=== PATIENT | female | born 2000 | race African-American/Black ===

== ENCOUNTER 2019-05-31 15:35 | Emergency (ER) | payer MEDICAID ==
[~2019-05-31] VITALS: Ht 167.6 cm; Wt 114.8 kg
[2019-05-31 15:35] VITALS: BP 143/68
[2019-05-31] MEDS ORDERED: IV NORMAL SALINE 500ML 500 ML IV SCH (16:00)
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
== END 2019-05-31 16:14 | disposition left against medical advice (07) ==
LOC: ER 15:35
DX: O46.91 Antepartum hemorrhage, unspecified, first trimester (principal); R10.32 Left lower quadrant pain; Z3A.00 Weeks of gestation of pregnancy not specified; Y08.89XA Assault by other specified means, initial encounter; Y93.89 Activity, other specified; Y92.89 Other specified places as the place of occurrence of the external cause; Y99.8 Other external cause status
CPT/HCPCS: 99284

== ENCOUNTER 2020-10-09 04:51 | Emergency (ER) | payer MEDICAID ==
[~2020-10-09] VITALS: Ht 167.6 cm; Wt 118.0 kg
--- NOTE | 2020-10-09 05:29 | PHYS DOC ---
Past History Past Medical History: No Pertinent History Past Surgical History: No Surgical History Smoking: Non-smoker Alcohol Use: None Drug Use: None Adult General HPI HPI Patient is a 19-year-old female who presents to the emergency department in the custody of the police department, at 34 weeks gestation for a well check before going to alf. Patient told police commissioner that she thinks he has been having contractions for the last 2 weeks and wanted to be checked out. Patient denies any recent travel, traumas, illnesses, fevers, known ill contacts, chest pain, shortness of breath, nausea, vomiting, diarrhea, dysuria. Denies any vaginal bleeding, watery discharge or drips or pain. States that she thinks she has be en having some contractions for the last 2 weeks and is having some cramping on both sides of her belly at the level of her inguinal canals. States that she is talked to her OB already about this and was told that they were Bradford Harry contractions. Denies any history of STIs Review of Systems Review of Systems Review of systems otherwise unremarkable except noted in HPI Allergies Allergies Allergies Coded Allergies Type Severity Reaction Last Updated Verified peanut Allergy Severe 05/31/19 Yes Physical Exam Physical Exam Constitutional: Well developed, well nourished, no acute distress, non-toxic radha earance. HENT: Normocephalic, atraumatic, Eyes: conjunctiva normal, no discharge. Neck: Normal range of motion, Cardiovascular:Heart rate regular rhythm, Lungs & Thorax: No respiratory distress Abdomen: soft, no tenderness, gravid : Patient declined exam or ultrasound Skin: Warm, dry, no erythema, no rash. [] Extremities: ROM intact, no edema. [] Neurologic: Alert and oriented X 3, normal motor function, normal sensory function, no focal deficits noted. [] Psychologic: Affect normal, judgement normal, mood normal. [] EKG EKG [] Radiology/Procedures Radiology/Procedures [] Heart Score C/O Chest Pain: No Risk Factors: Risk Factors: DM, Current or recent (<one month) smoker, HTN, HLP, family history of CAD, obesity. Risk Scores: Risk Factors: DM, Current or recent (<one month) smoker, HTN, HLP, family history of CAD, obesity. Course & Med Decision Making Course & Med Decision Making Patient is a 19-year-old female who presents in the police custody on her way to custodial who wanted to be checked out for contractions as she states she is 34 weeks and has been having contractions for 2 weeks Vital signs not concerning. heart tones noted at 145. Discussed with patient the work-up including bedside ultrasound, and speculum exam to begin to ensure health of the baby and mom. Mom stated that she really did not feel like getting a work-up, ultrasound or an exam and just wanted some Tylenol and was ready to go to alf. Both myself and ED nurse gave patient the risks of no work-up including continued or worsening abdominal pain and/or contractions, distress, and possibly demise including illness and pain for herself. Patient stated that she was just ready to go to alf, wanted some Tylenol and wanted to leave the emergency department. Patient left AMA [] Dragon Disclaimer Dragon Disclaimer This electronic medical record was generated, in whole or in part, using a voice recognition dictation system. Departure Departure: Disposition: LEFT AGAINST MEDICAL ADVICE Condition: STABLE Referrals: PCP,NO (PCP) FAVIAN BYNUM MD Patient Instructions: ABCs of , Abdominal Pain During , [id number] Additional Instructions: Please read all of the attached information very carefully. You came into the emergency department this evening in police custody, requesting a checkup as you believe you have been having contractions over the last couple of weeks. You stated that you talk to your [employer] and they felt that you are having Harper Harry. You were offered a full work-up in the emergency department including ultrasound and pelvic exam but politely declined stating you would just prefer some Tylenol and was ready to go to alf. Both the physician and the nurse discussed with you the risk of this including increased risks of discomfort, and pain for you and distress for your baby including but not limited to injury or loss of the baby. Please follow-up with your [employer] as soon as you can to discuss your ED visit and other needs. Please come back to the emergency department immediately with new or concerning symptoms as discussed. SILVANO ARANGO MD October 09, 2020 05:29
[2020-10-09] MEDS: ACETAMINOPHEN 500 MG TABLET PO ONE (05:56)
[2020-10-09 06:01] VITALS: BP 140/83
== END 2020-10-09 05:50 ==
LOC: ER 04:51
DX: O62.8 Other abnormalities of forces of labor (principal); Z3A.34 34 weeks gestation of pregnancy; Z91.010 Allergy to peanuts
CPT/HCPCS: 99284